=== PATIENT | female | born 1975 | race Two or more races ===

== ENCOUNTER 2021-07-09 15:33 | Emergency (ER) | payer MEDICAID ==
[~2021-07-09] VITALS: Ht 170.2 cm; Wt 72.6 kg
[2021-07-09 15:47] VITALS: BP 140/85
--- NOTE | 2021-07-09 16:04 | NUR ---
ANIMAL SURGEON AT PT'S BEDSIDE
[2021-07-09] MEDS ORDERED: DEXA6TAB6 PO (16:38)
[2021-07-09] MEDS ORDERED: AZIT250T13 PO (16:38)
--- NOTE | 2021-07-09 16:57 | NUR ---
Patient discharged to home in stable condition. Written and verbal after care instructions given. Patient verbalizes understanding of instruction. CD GIVEN. PT ambulatory with a steady gait
== END 2021-07-09 17:02 | disposition home or self-care (01) ==
LOC: ER 15:42
DX: R09.1 Pleurisy (principal); U07.1 COVID-19; Z87.42 Personal history of other diseases of the female genital tract; Z79.52 Long term (current) use of systemic steroids; Z79.2 Long term (current) use of antibiotics
CPT/HCPCS: 71045-TC

== ENCOUNTER 2022-03-22 17:52 | Emergency (ER) | payer MEDICAID ==
[~2022-03-22] VITALS: Ht 165.1 cm; Wt 59.0 kg
[~2022-03-22 17:52] MED LIST: AZIT250T13 PO; DEXA6TAB6 PO
--- NOTE | 2022-03-22 18:40 | NUR ---
TRIAGED, CHOSE TO WAIT IN HER CAR FOR A BED, CELL:[phone]
--- NOTE | 2022-03-22 20:25 | NUR ---
US TECH AT BEDSIDE
[2022-03-22 21:04] LABS: BILIRUBIN,URINE NEGATIVE (NEGATIVE); COLOR,URINE YELLOW (YELLOW); LEUKOCYTE ESTERASE ,URINE NEGATIVE (NEGATIVE); NITRITE, URINE NEGATIVE (NEGATIVE); PROTEIN,URINE NEGATIVE (NEGATIVE); UGLUCOSE NEGATIVE (NEGATIVE); UROBILINOGEN,URINE 0.2 EU/dL (0.2)
[2022-03-22 22:01] VITALS: BP 140/88
--- NOTE | 2022-03-22 22:01 | NUR ---
Patient discharged to home in stable condition. Written and verbal after care instructions given. Patient verbalizes understanding of instruction.
== END 2022-03-22 22:02 | disposition home or self-care (01) ==
LOC: ER 17:59
DX: R10.2 Pelvic and perineal pain (principal); Z79.899 Other long term (current) drug therapy
CPT/HCPCS: 76856-TC; 84703-TC

== ENCOUNTER 2022-12-26 21:10 | Emergency (ER) | payer MEDICAID ==
[~2022-12-26] VITALS: Ht 167.6 cm; Wt 78.9 kg
--- NOTE | 2022-12-26 21:49 | NUR ---
BIBDAUGHTER FROM HOME C/O R HIP RADIATING DOWN TO LEGS AND BACK PAIN SINCE YESTERDAY
--- NOTE | 2022-12-26 21:56 | NUR ---
URINE COLLECTED SENT TO LAB
[2022-12-26] MEDS ORDERED: IV NS 0.9% 1,000 ML IV ONE (23:00)
--- NOTE | 2022-12-26 23:12 | NUR ---
20G IV STARTED ON L FOREARM. BLOOD COLLECTED SENT TO LAB
[2022-12-26 23:24] LABS: BASOPHILS % (AUTO) 0.6 % (0.0-2.0); HEMATOCRIT 41 % (33-45); HEMOGLOBIN 13.9 g/dL (11.5-14.8); LYMPHOCYTES # (AUTO) 2.6 K/uL (0.8-4.8); LYMPHOCYTES % (AUTO) 32.3 % (20.0-44.0); MEAN CORPUSCULAR HGB CONC 34 g/dl (31.0-36.0); MEAN CORPUSCULAR VOLUME 82 fL (82-100); MONOCYTES # (AUTO) 0.6 K/uL (0.1-1.30); MONOCYTES % (AUTO) 7.9 % (2.0-12.0); NEUTROPHILS # (AUTO) 4.7 K/uL (1.8-8.9); NEUTROPHILS % (AUTO) 58.2 % (43.0-81.0); PLATELET COUNT (AUTO) 200 K/uL (150-450); RED BLOOD CELL COUNT(AUTO) 5.03 MIL/uL (4.0-5.2)
[2022-12-26 23:41] LABS: CALCIUM, SERUM 9.7 mg/dL (8.5-10.1); CREATININE 0.7 mg/dL (0.6-1.3); POTASSIUM 4.1 mmol/L (3.5-5.1)
[2022-12-26 23:47] LABS: BILIRUBIN,TOTAL 0.9 mg/dL (0.2-1.0); MAGNESIUM 2.2 mg/dL (1.8-2.4); TOTAL PROTEIN, SERUM 7.1 g/dL (6.4-8.2)
[2022-12-26 23:56] LABS: BILIRUBIN,URINE NEGATIVE (NEGATIVE); COLOR,URINE YELLOW (YELLOW); LEUKOCYTE ESTERASE ,URINE TRACE (NEGATIVE); NITRITE, URINE NEGATIVE (NEGATIVE); PROTEIN,URINE NEGATIVE (NEGATIVE); UGLUCOSE NEGATIVE (NEGATIVE); UROBILINOGEN,URINE 0.2 EU/dL (0.2)
--- NOTE | 2022-12-27 00:29 | NUR ---
Patient discharged to home in stable condition. Written and verbal after care instructions given. Patient verbalizes understanding of instruction.IV removed. Catheter intact and site benign. Pressure and 4x4 applied to site. No bleeding noted.
[2022-12-27 01:04] VITALS: BP 128/84; TEMP 98.7
== END 2022-12-27 01:04 | disposition home or self-care (01) ==
LOC: ER 21:16
DX: M79.10 Myalgia, unspecified site (principal); E86.0 Dehydration; B34.9 Viral infection, unspecified; I10 Essential (primary) hypertension; E78.00 Pure hypercholesterolemia, unspecified
CPT/HCPCS: 99283; 96360; 85025; 83735; 81003; 36415; 80053; J7030 ×2

== ENCOUNTER 2023-01-31 23:20 | Emergency (ER) | payer MEDICAID ==
[~2023-01-31] VITALS: Ht 172.7 cm; Wt 72.6 kg
[2023-02-01 00:13] LABS: BASOPHILS # (AUTO) 0.1 K/uL (0.0-0.2); BASOPHILS % (AUTO) 0.7 % (0.0-2.0); EOSINOPHILS # (AUTO) 0.1 K/uL (0.0-0.7); EOSINOPHILS % (AUTO) 1.6 % (0.0-6.0); HEMATOCRIT 42 % (33-45); HEMOGLOBIN 14.3 g/dL (11.5-14.8); LYMPHOCYTES # (AUTO) 3.2 K/uL (0.8-4.8); LYMPHOCYTES % (AUTO) 39.4 % (20.0-44.0); MEAN CORPUSCULAR HEMOGLOBIN 28 PG (26.0-33.0); MEAN CORPUSCULAR HGB CONC 34 g/dl (31.0-36.0); MEAN CORPUSCULAR VOLUME 83 fL (82-100); MONOCYTES # (AUTO) 0.5 K/uL (0.1-1.30); MONOCYTES % (AUTO) 6.4 % (2.0-12.0); NEUTROPHILS # (AUTO) 4.2 K/uL (1.8-8.9); NEUTROPHILS % (AUTO) 51.9 % (43.0-81.0); PLATELET COUNT (AUTO) 216 K/uL (150-450); RED BLOOD CELL COUNT(AUTO) 5.08 MIL/uL (4.0-5.2); RED CELL DISTRIBUTION WIDTH 13.2 % (11.5-15.0); WHITE BLOOD COUNT (AUTO) 8.1 K/uL (4.3-11.0)
[2023-02-01 00:24] LABS: CALCIUM, SERUM 9.6 mg/dL (8.5-10.1); CARBON DIOXIDE 28 mmol/L (21-32); CHLORIDE 105 mmol/L (98-107); CREATININE 0.7 mg/dL (0.6-1.3); GLUCOSE 99 mg/dL (74-106); POTASSIUM 4.2 mmol/L (3.5-5.1); SODIUM SERUM 142 mmol/L (136-145); UREA NITROGEN, BLOOD 12 mg/dL (7-18)
[2023-02-01 01:43] VITALS: BP 136/76; TEMP 98.2; O2SAT 98
== END 2023-02-01 01:43 | disposition home or self-care (01) ==
LOC: ER 23:30
DX: R07.9 Chest pain, unspecified (principal)
CPT/HCPCS: 36415; 71045-TC; 80048-TC; 84484-TC; 85025-TC

== ENCOUNTER 2024-03-24 17:19 | Emergency (ER) | payer MEDICAID ==
[~2024-03-24] VITALS: Ht 167.6 cm; Wt 68.0 kg
[2024-03-24] MEDS: IV NS 0.9% 1,000 ML BAG IV ONE (18:08)
[2024-03-24 18:14] LABS: BASOPHILS # (AUTO) 0.1 K/uL (0.0-0.2); BASOPHILS % (AUTO) 0.8 % (0.0-2.0); EOSINOPHILS # (AUTO) 0.1 K/uL (0.0-0.7); EOSINOPHILS % (AUTO) 0.8 % (0.0-6.0); HEMATOCRIT 43 % (33-45); HEMOGLOBIN 14.3 g/dL (11.5-14.8); LYMPHOCYTES # (AUTO) 2.3 K/uL (0.8-4.8); LYMPHOCYTES % (AUTO) 33.1 % (20.0-44.0); MEAN CORPUSCULAR HEMOGLOBIN 27 PG (26.0-33.0); MEAN CORPUSCULAR HGB CONC 33 g/dl (31.0-36.0); MEAN CORPUSCULAR VOLUME 83 fL (82-100); MONOCYTES # (AUTO) 0.5 K/uL (0.1-1.30); NEUTROPHILS % (AUTO) 58.3 % (43.0-81.0); PLATELET COUNT (AUTO) 173 K/uL (150-450); RED BLOOD CELL COUNT(AUTO) 5.23 MIL/uL (4.0-5.2); RED CELL DISTRIBUTION WIDTH 13.5 % (11.5-15.0); WHITE BLOOD COUNT (AUTO) 6.8 K/uL (4.3-11.0)
[2024-03-24 18:26] LABS: CALCIUM, SERUM 9.2 mg/dL (8.5-10.1); CREATININE 0.7 mg/dL (0.6-1.3); POTASSIUM 4.2 mmol/L (3.5-5.1)
[2024-03-24 18:30] LABS: ALBUMIN 4.1 g/dL (3.4-5.0); BILIRUBIN,DIRECT 0.2 mg/dL (0.0-0.2); BILIRUBIN,TOTAL 0.8 mg/dL (0.2-1.0); TOTAL PROTEIN, SERUM 7.3 g/dL (6.4-8.2)
[2024-03-24 18:32] LABS: APPEARANCE,URINE CLEAR (CLEAR); BILIRUBIN,URINE NEGATIVE (NEGATIVE); BLOOD, URINE TRACE-INTA Ery/uL (NEGATIVE); COLOR,URINE YELLOW (YELLOW); KETONES,URINE NEGATIVE (NEGATIVE); LEUKOCYTE ESTERASE ,URINE NEGATIVE (NEGATIVE); NITRITE, URINE NEGATIVE (NEGATIVE); PROTEIN,URINE NEGATIVE (NEGATIVE); UGLUCOSE NEGATIVE (NEGATIVE)
[2024-03-24 18:34] LABS: PREGNANCY TEST URINE QUAL NEGATIVE (NEGATIVE)
[2024-03-24 18:42] LABS: WBC,URINE 0-2 /HPF (0-3)
[2024-03-24 18:43] LABS: ADD URINE CULTURE NO; BACTERIA,URINE None seen /HPF (None Seen); CALCIUM OXALATE CRYSTALS,UR Many /HPF (None Seen); SQUAMOUS EPITHELIAL CELL,UR 0-2 /HPF (None Seen)
[2024-03-24 21:22] VITALS: BP 121/75; TEMP 98; O2SAT 99
== END 2024-03-24 21:23 | disposition home or self-care (01) ==
LOC: ER 17:32
DX: R10.32 Left lower quadrant pain (principal); R10.2 Pelvic and perineal pain; Z98.890 Other specified postprocedural states; Z79.899 Other long term (current) drug therapy
CPT/HCPCS: 99284; 74176; 96360; 76856; 85025; 80048; 83690; 80076; 84703; 81001; 36415; J7030